=== PATIENT | female | born 2005 | race Caucasian/White ===

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

== ENCOUNTER → 2024-07-18 | Outpatient (CLI) | payer OTHER ==
[2024-07-18 18:19] LABS: Percent Saturation 38.5 % (15.0-50.0)
== END ==
LOC: LAB SHORT 16:17 → LAB 16:17
PROVIDERS: Advanced Practice Midwife
DX: Z34.93 Encounter for supervision of normal pregnancy, unspecified, third trimester (principal)
CPT/HCPCS: 82728; 83540; 83550

== ENCOUNTER → 2024-08-15 | Outpatient (CLI) | payer OTHER ==
[2024-08-15 17:35] LABS: BASOPHILS ABSOLUTE AUTO 0.04 K/mm3 (0.00-0.23); BASOPHILS PERCENT AUTO 0 % (0-2); EOSINOPHILS ABSOLUTE AUTO 0.22 K/mm3 (0.00-0.68); EOSINOPHILS PERCENT AUTO 2 % (0-6); Hematocrit 31.9 % (33.0-51.0); Hemoglobin 10.6 g/dL (11.5-16.0); IMMATURE GRAN PERCENT AUTO 1 % (0-1); LYMPHOCYTES ABSOLUTE AUTO 2.03 K/mm3 (0.84-5.20); LYMPHOCYTES PERCENT AUTO 14 % (21-46); MONOCYTES ABSOLUTE AUTO 0.79 K/mm3 (0.16-1.47); MONOCYTES PERCENT AUTO 6 % (4-13); Mean Corpuscular HGB 29.5 pg (26.0-34.0); Mean Corpuscular HGB Conc 33.2 g/dL (31.5-36.5); Mean Corpuscular Volume 89 fL (80-100); Mean Platelet Volume 10.1 fL (9.1-12.4); NEUTROPHILS ABSOLUTE AUTO 11.07 K/mm3 (1.96-9.15); NEUTROPHILS PERCENT AUTO 77 % (41-73); Platelet Count 208 K/mm3 (150-400); RDW Coefficient Variation 14.3 % (11.7-14.2); RDW Standard Deviation 45.7 fL (35.1-46.3); Red Blood Cell Count 3.59 M/mm3 (3.80-5.20); White Blood Cell Count 14.35 K/mm3 (4.00-11.30)
== END | disposition home or self-care (01) ==
LOC: LAB 16:23 → LAB SHORT 16:23
PROVIDERS: Advanced Practice Midwife
DX: Z34.93 Encounter for supervision of normal pregnancy, unspecified, third trimester (principal); D64.9 Anemia, unspecified
CPT/HCPCS: 85025

== ENCOUNTER 2024-09-21 19:47 | Inpatient (IN) | payer OTHER ==
[~2024-09-21] VITALS: Ht 167.6 cm; Wt 68.6 kg
[2024-09-21 19:58] VITALS: BP 142/67
[2024-09-21 20:17] VITALS: BP 126/69
[2024-09-21] MEDS ORDERED: Carboprost Tromethamine 250 MCG/ML 1ML Amp IM PRN (22:50)
[2024-09-21] MEDS ORDERED: Ondansetron HCl 2 MG / ML 2ML Vial IV PRN (22:50)
[2024-09-21] MEDS ORDERED: Misoprostol 200 MCG Tab BC PRN (22:50)
[2024-09-21] MEDS ORDERED: FentaNYL 2mcg/ml-Bup 0.1% Epd 250 ML EPI PRN (22:50)
[2024-09-21] MEDS ORDERED: ePHEDrine Sulfate 50 MG/ML 1ML Injection XX PRN (22:50)
[2024-09-21] MEDS ORDERED: Acetaminophen 500 MG Tab PO PRN (22:50)
[2024-09-21] MEDS ORDERED: Misoprostol 200 MCG Tab PR PRN (22:50)
[2024-09-21] MEDS ORDERED: Methylergonovine Maleate 0.2MG / ML 1ML Amp IM PRN (22:50)
[2024-09-21] MEDS ORDERED: Oxytocin 10 Unit / ML Vial IM PRN (22:50)
[2024-09-21] MEDS ORDERED: Tranexamic Acid 100 ML IV SCH (22:50)
[2024-09-21] MEDS ORDERED: OXYTOCIN/RINGER'S LACTATE 500 ML IV PRN (22:50)
[2024-09-21] MEDS ORDERED: Lactated Ringer's 1,000 ML IV PRN ×3 (22:50)
[2024-09-21] MEDS ORDERED: FentaNYL Citrate 50 MCG/ML 2 ML Injection IV PRN (22:55)
[2024-09-21] MEDS ORDERED: Calcium Carbonate 500 MG Tab Chew PO PRN (22:55)
[2024-09-21 23:18] LABS: BASOPHILS ABSOLUTE AUTO 0.04 K/mm3 (0.00-0.23); BASOPHILS PERCENT AUTO 0 % (0-2); EOSINOPHILS ABSOLUTE AUTO 0.18 K/mm3 (0.00-0.68); EOSINOPHILS PERCENT AUTO 1 % (0-6); Hematocrit 36.5 % (33.0-51.0); Hemoglobin 12.6 g/dL (11.5-16.0); IMMATURE GRAN ABSOLUTE AUTO 0.22 K/mm3 (0.00-0.10); IMMATURE GRAN PERCENT AUTO 1 % (0-1); LYMPHOCYTES ABSOLUTE AUTO 2.67 K/mm3 (0.84-5.20); LYMPHOCYTES PERCENT AUTO 15 % (21-46); MONOCYTES ABSOLUTE AUTO 0.69 K/mm3 (0.16-1.47); MONOCYTES PERCENT AUTO 4 % (4-13); Mean Corpuscular HGB 29.9 pg (26.0-34.0); Mean Corpuscular HGB Conc 34.5 g/dL (31.5-36.5); Mean Corpuscular Volume 87 fL (80-100); NEUTROPHILS ABSOLUTE AUTO 13.86 K/mm3 (1.96-9.15); NEUTROPHILS PERCENT AUTO 79 % (41-73); Platelet Count 229 K/mm3 (150-400); RDW Coefficient Variation 13.8 % (11.7-14.2); RDW Standard Deviation 43.6 fL (35.1-46.3); Red Blood Cell Count 4.22 M/mm3 (3.80-5.20); White Blood Cell Count 17.66 K/mm3 (4.00-11.30)
[2024-09-21 23:59] VITALS: BP 126/65
[2024-09-22] VITALS (26 sets, daily range): BP systolic 102–146; BP diastolic 58–79
[2024-09-22] MEDS ORDERED: Misoprostol 100 MCG Tab PO PRN (22:45)
[2024-09-22] MEDS ORDERED: FLU VACC TS2024-25(6MOS UP)/PF 45 MCG/0.5 ML SYRINGE IM ONE (22:50)
[2024-09-22] MEDS ORDERED: Diphth,Pertuss(Acell),Tet Vac 0.5 ML VIAL IM ONE (22:50)
[2024-09-22] MEDS ORDERED: Docusate Sodium 100 MG Cap PO PRN (22:50)
[2024-09-22] MEDS ORDERED: OXYTOCIN/RINGER'S LACTATE 500 ML IV SCH (22:50)
[2024-09-22] MEDS ORDERED: Methylergonovine Maleate 0.2MG / ML 1ML Amp IM PRN (22:50)
[2024-09-22] MEDS ORDERED: Acetaminophen 325 MG TABLET PO PRN (22:50)
[2024-09-22] MEDS ORDERED: Ketorolac Tromethamine 30mg Vial IV PRN (22:55)
[2024-09-22] MEDS ORDERED: Lanolin Cream TOP PRN (22:55)
[2024-09-22] MEDS ORDERED: Ibuprofen 400 MG Tab PO PRN (22:55)
[2024-09-22] MEDS ORDERED: Witch Hazel/Glycerin PADS TOP PRN (22:55)
[2024-09-22] MEDS ORDERED: Benzocaine Topical Anesthetic Spray 60GM TOP PRN (22:55)
[2024-09-22] MEDS ORDERED: OxyCODONE 5 mg/Acetamin 325 mg TABLET PO PRN (22:55)
[2024-09-22] MEDS ORDERED: Lactated Ringer's 1,000 ML IV SCH (22:55)
[2024-09-23 00:08] VITALS: BP 120/55
[2024-09-23 04:03] VITALS: BP 99/54
[2024-09-23 07:41] VITALS: BP 96/52
[2024-09-23] MEDS ORDERED: Prenatal Vit/FE Fumarate/FA 1 Tab PO SCH (09:00)
[2024-09-23 10:43] LABS: Hematocrit 34.1 % (33.0-51.0); Hemoglobin 11.5 g/dL (11.5-16.0); Mean Corpuscular HGB 29.5 pg (26.0-34.0); Mean Corpuscular HGB Conc 33.7 g/dL (31.5-36.5); Mean Corpuscular Volume 87 fL (80-100); Mean Platelet Volume 10.3 fL (9.1-12.4); Platelet Count 179 K/mm3 (150-400); RDW Coefficient Variation 13.9 % (11.7-14.2); White Blood Cell Count 15.67 K/mm3 (4.00-11.30)
[2024-09-23 12:06] VITALS: BP 119/56
[2024-09-23 15:43] VITALS: BP 118/67
[2024-09-23 19:50] VITALS: BP 119/65
[2024-09-24 05:23] VITALS: BP 104/58
[2024-09-24 08:42] VITALS: BP 123/66
[2024-09-24 13:20] VITALS: BP 118/59
[2024-09-24 17:39] LABS: HEPATITIS C AB CIA INTERP Negative (Negative); HEPATITIS C ANTIBODY CIA INDEX 0.14 IV
== END 2024-09-24 13:25 | disposition home or self-care (01) | DRG 807 ==
LOC: OBS 19:47 → BC 19:55 → OBS 20:25 → BC 22:35
PROVIDERS: Advanced Practice Midwife; ADMIT Family Medicine
PROC: 10E0XZZ Delivery of Products of Conception, External Approach (ICD-10-PCS; principal; 2024-09-22)
PROC: 10907ZC Drainage of Amniotic Fluid, Therapeutic from Products of Conception, Via Natural or Artificial Opening (ICD-10-PCS; 2024-09-22)
DX: O99.324 Drug use complicating childbirth (principal); Z37.0 Single live birth; F12.90 Cannabis use, unspecified, uncomplicated; Z3A.38 38 weeks gestation of pregnancy; O70.0 First degree perineal laceration during delivery
CPT/HCPCS: 36415; 51702; 59025; 81003; 85025; 85027; 86803; 86850; 86900; 86901; 99214; A9270; J1885; J2590; J7120